=== PATIENT | female | born 1975 | race Caucasian/White ===

== ENCOUNTER 2023-06-01 13:28 | Emergency (ER) | payer OTHER, SELFPAY ==
--- NOTE | ~2023-06-01 | XR_ITS ---
EXAMINATION: [id number] Exam Date/Time: 06/01/2023 14:04 CDT HISTORY: s/p fall on left back down stairs Comparison: None. RESULT: Lines, tubes, and devices: None. Lungs and pleura: Clear. Cardiomediastinal silhouette: Unremarkable. Other: No acute osseous or upper abdominal finding. IMPRESSION: No acute cardiopulmonary process. No acute osseous finding in the left ribs. Reviewed, dictated and finalized at location K.
--- NOTE | ~2023-06-01 | XR_ITS ---
EXAM: XR lumbar spine 2-3V DATE: 06/01/2023 15:31 HISTORY: injury, FALL DOWN STAIRS . COMPARISON: None available. FINDINGS: 5 nonrib-bearing lumbar-type vertebral bodies. Pedicles intact. Normal vertebral body alig nment. Vertebral body heights preserved. Mild multilevel degenerative disc disease. Normal facets and posterior elements. No fracture or dislocation. IMPRESSION: No acute fracture or traumatic malalignment detected in the lumbar spine. Reviewed, dictated and finalized at location K.
[2023-06-01 13:33] VITALS: BP 139/82; PULSE 93; RESP 20; TEMP 36.6; O2SAT 100
[2023-06-01] MEDS: diazePAM (*CRX) 5 MG TABLET PO (14:02)
[2023-06-01] MEDS: KETOROLAC 30 MG/ML VIAL (*BKC) 15 MG IM (14:02)
[2023-06-01] MEDS: LIDOCAINE 5% PATCH 1 PATCH TRANSDERM (14:03)
[2023-06-01 15:05] VITALS: BP 128/85; PULSE 79; RESP 16; O2SAT 100
[2023-06-01 15:15] LABS: Appearance Urine Cloudy (Clear); Bacteria Urine Rare /hpf; Bilirubin Urine Negative (Negative); Blood Urine Negative (Negative); Color Urine Yellow (Yellow); Glucose Urine UA Negative (Negative); Ketones Urine Trace mg/dL (Negative); Leukocyte Esterase Ur 1+ LEU/UL (Negative); Nitrate Urine Negative (Negative); Protein Urine Negative (Negative); RBC Urine 0-2 /hpf (0-2); Specific Grav Ur 1.021 (1.001-1.035); Squamous Epithelial Cell Urine Moderate /hpf (Few); Urobilinogen Urine 0.2 mg/dL (<2.0)
[2023-06-01 15:17] LABS: Add Urine Microscopic? YES
--- NOTE | 2023-06-01 16:31 | ED.FALL ---
HPI - Fall General Chief Complaint: Fall Stated Complaint: fell down steps Time Seen by Provider: 06/01/23 13:45 History of Present Illness HPI Narrative: Patient presents here after she had a fall when she tripped, landing on her left lower back she is having pain worse when she moves, not too bad when she stays still. She did take a shower afterwards because she felt dirty. Is able to walk. No focal numbness or weakness. Related Data Allergies Allergy/AdvReac Type Severity Reaction Status Date / Time No Known Allergies Allergy Mild Verified 09/21/21 10:41 Review of Systems Review of Systems: All systems reviewed & are unremarkable except as noted in HPI and below PMFSH Family History Family History (System 09/21/21 @ 10:41 by Jarad Carson) Father Family history of diabetes mellitus in first degree relative Mother Family history of lung cancer, Onset Age: 54 Patient's mother is Social History Social History (System 09/21/21 @ 10:41 by Jarad Carson) Smoking status: Never smoker Second hand tobacco smoke exposure: No Alcohol intake: never Exam Narrative: EXAMINATION OF ORGAN SYSTEMS/BODY AREAS: Constitutional: Vital signs per nursing GENERAL:[No acute distress, non-toxic appearing.] HEAD: Normal with no signs of head trauma. EYES: EOMI, conjunctiva normal ENT: Hearing grossly intact LUNGS: Nonlabored breathing. HEART: [Regular rate and rhythm] ABD: [Soft], [nontender to palpation] EXT: Normal range of motion; tenderness to left lower back. No midline tenderness. SKIN: [No rashes or lesions.] NEURO: [Alert and oriented x 3. No gross focal sensory or strength deficits.] Ambulating with normal steady gait. PSYCH: Anxious affect Course Vital Signs Vital signs: Vital Signs Temperature 97.9 F 06/01/23 13:33 Pulse Rate 93 06/01/23 13:33 Respiratory Rate 20 06/01/23 13:33 Blood Pressure 139/82 06/01/23 13:33 Pulse Oximetry 100 06/01/23 13:33 Temperature 98.4 F 06/01/23 16:32 Pulse Rate 68 06/01/23 16:32 Respiratory Rate 19 06/01/23 16:32 Blood Pressure 133/76 06/01/23 16:32 Pulse Oximetry 100 06/01/23 16:32 MDM - Fall MDM Narrative Medical decision making narrative: Patient presenting with injury to left lower back injury, she is able to ambulate without issues, she does report pain to left lower back, no trouble breathing, no midline tenderness on exam. She is given pain medication and afterwards is feeling quite a bit better, she is requesting imaging at this time, therefore I did obtain repeat x-ray and spine x-rays which are normal. Urinalysis obtained which does not show any RBCs, have low concern for kidney injury based on mechanism of the fall, I did perform a bedside ultrasound which does not show any free fluid around the left kidney. Patient i==feels much more reassured seeing this. I did let her know that the urinalysis could be consistent with a urinary tract infection, patient denies any dysuria or symptoms consistent with UTI or rather not be started on antibiotics at this time. She is feeling better, she has ambulated to the bathroom this and she has no issues with this, walking with steady gait. She has no neurovascular deficits. I do feel she is stable for discharge with return precautions. Patient and at bedside agreeable to this plan. Lab Data Labs: Lab Results 06/01/23 Range/Units 15:05 Urine Color Yellow (Yellow) Urine Appearance Cloudy H (Clear) Urine pH 5.0 (5.0-9.0) Ur Specific Alfred 1.021 (1.001-1.035) Urine Protein Negative (Negative) mg/dL Urine Glucose (UA) Negative (Negative) mg/dL Urine Ketones Trace H (Negative) mg/dL Ur Blood (Man) Negative (Negative) Urine Nitrate Negative (Negative) Urine Bilirubin Negative (Negative) Urine Urobilinogen 0.2 (<2.0) mg/dL Leukocyte Esterase Rfl 1+ H (Negative) GALEN/UL Urine RBC 0-2 (0-2) /hp
[2023-06-01 16:32] VITALS: BP 133/76; PULSE 68; RESP 19; TEMP 36.9; O2SAT 100
== END 2023-06-01 16:33 | disposition home or self-care (01) ==
PROVIDERS: Emergency Provider Emergency Medicine; PCP Family Medicine
DX: S30.0XXA Contusion of lower back and pelvis, initial encounter (principal); R82.998 Other abnormal findings in urine; W01.0XXA Fall on same level from slipping, tripping and stumbling without subsequent striking against object, initial encounter
CPT/HCPCS: 71101; 72100; 81001; 81025; 87077; 87086; 87088; 87186; 96372; 99284; A9270; J1885